=== PATIENT | female | born 1950 | race American Indian/Alaskan Native ===

== ENCOUNTER 2019-02-18 08:40 | Observation (INO) | payer MEDICARE, OTHER ==
[2019-02-18 09:59] LABS: Basophils # (Auto) 0.1 K/mm3 (0.0-0.1); Eosinophils # (Auto) 0.1 K/mm3 (0.0-0.4); Eosinophils % (Auto) 1.9 % (0.0-4.3); Hemoglobin 13.1 gm/dl (10.1-14.3); Lymphocytes # (Auto) 1.9 K/mm3 (1.2-5.4); Lymphocytes % (Auto) 34.1 % (13.4-35.0); Mean Corpuscular HGB Conc 34 % (30-34); Mean Corpuscular Volume 91 fl (79-97); Monocytes # (Auto) 0.5 K/mm3 (0.0-0.8); Monocytes % (Auto) 9.3 % (0.0-7.3); Platelet Count 224 K/mm3 (140-440); Red Blood Count 4.29 M/mm3 (3.65-5.03); Red Cell Distribution Width 13.2 % (13.2-15.2)
[2019-02-18] MEDS ORDERED: NACL 0.9% 500 ML 500 ML IV SCH (10:00)
[2019-02-18] MEDS ORDERED: ECOTRIN PO ONE (10:00)
[2019-02-18 10:18] LABS: BUN/Creatinine Ratio 24; Blood Urea Nitrogen 12 mg/dL (7-17); Calcium 9.2 mg/dL (8.4-10.2); Hemolysis Index 24
[2019-02-18 10:40] LABS: INR 0.95 (0.87-1.13)
[2019-02-18] MEDS ORDERED: VERSED ONE (10:54)
[2019-02-18] MEDS ORDERED: CALAN ONE (10:54)
[2019-02-18] MEDS ORDERED: XYLOCAINE 2% INFILTRATI ONE (10:55)
[2019-02-18] MEDS: NITROGLYCERIN SYRINGE 3 ML ONE ×2 (11:38→11:53)
[2019-02-18] MEDS: HEPARIN/NS 5000 UNIT/500ML(CATH LAB) 1,000 ML IR ONE ×2 (11:38→11:50)
[2019-02-18] MEDS: SUBLIMAZE ONE ×3 (11:51→12:17)
[2019-02-18] MEDS: HEPARIN 10,000 UNITS/10 ML ONE ×2 (11:53→12:09)
[2019-02-18] MEDS ORDERED: ALUM-MAG HYDROX-SIMETH 200-200-20MG/5ML ONE (12:33)
[2019-02-18] MEDS ORDERED: PLAVIX ONE (12:33)
--- NOTE | 2019-02-18 13:33 | Cardiac Catherization Report ---
CARDIAC CATHETERIZATION REFERRING PHYSICIAN: Barak Cuevas MD INDICATION FOR PROCEDURE: The patient is a pleasant 68-year-old -Vin[place] female with recurrent chest pain, abnormal stress EKG, referred for left heart catheterization. Risks, benefits, and potential alternatives were explained at length prior to obtaining informed consent. PROCEDURE IN DETAIL: The patient was brought to the catheterization lab in a postabsorptive state, prepped and draped in sterile fashion, 8 mL of 2% lidocaine used to anesthetize the right wrist. A standard 6-[place] hydrophilic sheath used to cannulate the right radial artery via modified Seldinger technique. All exchanges performed changing to a J-tip guidewire. JL3.5 catheter used to engage the left main. No dampening or ventricularization. Cineangiography performed in all projections. JR4 catheter used to cross the aortic valve under fluoroscopic guidance. Left ventriculography performed 30 FERNANDO and 30 JERMAIN projections via hand injections, catheter flushed. Manual pullback performed with continuous pressure monitoring. Catheter used to engage the right coronary. No dampening or ventricularization. Cineangiography performed in all projections. Next, catheter removed from the body of wire. DATA: Aortic pressure is 150/60, LV pressure is 150, LVEDP of 18 mmHg. Left ventriculography reveals normal systolic performance with estimated ejection fraction of 55-60%. No evidence of aortic stenosis. CORONARY ANATOMY: This is a right dominant system. Right coronary with 99% mid segment lesion and 90% high mid lesion YING 2 flow. Left main short without significant disease, bifurcates left anterior descending and left circumflex. Left circumflex had significant disease, but it gives off an OM trunk. No significant disease. LAD is a moderate sized vessel, courses anterior intergroove, wraps and the apex, no significant disease in the LAD or diagonal system. These are smaller vessels. Left ventricle reveals normal ejection fraction of 60-65%. No evidence of aortic stenosis. At this point, given her symptoms, abnormal stress test, continue chest pain, proceed with PCI. A JR4 guide with sideholes was used. Heparin given. Abnormal ACT confirmed. The patient loaded with aspirin and Plavix. Prowater used and placed in the distal right coronary. We used a 2.5 balloon to predilate both lesions without difficulty. Used 2.5 x 12 Barnard stent in the distal lesion and deployed at 12 NABOR for 30 seconds. Excellent final angiographic results. Next, we used 2.5 x 12 in the proximal lesion. Juan deployed at 12 NABOR for 30 seconds. Excellent angiographic result. Intracoronary nitroglycerin was given for some mild spasm distally. YING 3 flow, excellent angiographic result. Intravascular ultrasound was performed, multiple passes were made. Excellent result. Excellent final angiographic and ultrasonographic results. The patient is chest pain free, hemodynamically stable and electrically stable. I directly supervised the administration of moderate sedation with fentanyl and Versed from 11:51-12:35 p.m. CONCLUSIONS: 1. Severe single vessel coronary artery disease with 90% high, mid and 90% mid to distal right coronary. These were certainly culprit lesions and causative of her symptoms. Successful PCI with placement of 2 drug-eluting stents. Resolute Juan 2.5 x 12 times 2 with excellent final angiographic and ultrasonographic results. 2. No other significant coronary disease. 3. Preserved LV function. 4. Aggressive primary and secondary prevention measures, statin, Plavix, aspirin. Blood pressure control. The patient is clinically stable. Follow up with Dr. Cuevas in the office. Results of procedure explained to the patient and family. All questions and concerns were addressed. JOB# [id number] SBAmrik/JIM
--- NOTE | 2019-02-18 13:35 | Short Stay Summary ---
Short Stay Documentation Date of service: 02/18/19 - History H&P: obtained from office - Allergies and Medications Current Medications: Allergies No Known Allergies Allergy (Verified 02/18/19 10:52) Home Medications Medication Instructions Recorded Confirmed Last Taken Type Lisinopril/Hydrochlorothiazide 1 tab PO DAILY 02/18/19 02/18/19 02/18/19 History 1 Active Medications Aspirin (Aspirin) 325 mg PO QDAY AMANDEEP Atorvastatin Calcium (Lipitor) 80 mg PO QHS AMANDEEP Clopidogrel Bisulfate (Plavix) 75 mg PO QDAY AMANDEEP Sodium Chloride (Nacl 0.9% 500 Ml) 500 mls @ 50 mls/hr IV DIRECT AMANDEEP Stop: 02/18/19 19:59 Last Admin: 02/18/19 10:00 Dose: 50 mls/hr Documented by: Metoprolol Tartrate (Lopressor) 25 mg PO BID AMANDEEP - Brief post op/procedure progress note Date of procedure: 02/18/19 Pre-op diagnosis: abnormal stress test Post-op diagnosis: other (CAD) Procedure: [facility] with PCI - see dictated cath report Anesthesia: local Estimated blood loss: none Condition: stable - Disposition Condition at discharge: Good Disposition: DC-01 TO HOME OR SELFCARE - Discharge Diagnoses (1) CAD (coronary artery disease) Status: Chronic (2) Stented coronary artery Status: Chronic (3) HTN (hypertension) Status: Chronic (4) Hyperlipidemia Status: Chronic Short Stay Discharge Plan Activity: advance as tolerated Diet: low fat, low cholesterol, low salt Wound: open to air, keep clean and dry, per your surgeon's advice Follow up with: ARGENIS MINOR NP-C [Primary Care Provider] - 7 Days MARC SHARP MD [Staff Physician] - 7 Days Prescriptions: AtorvaSTATin [Lipitor] 80 mg PO QHS #90 tablet Metoprolol [Lopressor TAB] 25 mg PO BID #180 tablet Clopidogrel [Plavix] 75 mg PO QDAY #90 tablet
[2019-02-18] MEDS ORDERED: ZESTRIL PO ONE (14:30)
[2019-02-18] MEDS ORDERED: LOPRESSOR PO ONE (14:30)
[2019-02-18] MEDS ORDERED: TYLENOL PO PRN (18:18)
[2019-02-18] MEDS: LOPRESSOR PO SCH (21:33)
[2019-02-19 06:05] LABS: Basophils % (Auto) 0.7 % (0.0-1.8); Eosinophils # (Auto) 0.1 K/mm3 (0.0-0.4); Eosinophils % (Auto) 2.2 % (0.0-4.3); Hematocrit 37.7 % (30.3-42.9); Hemoglobin 12.7 gm/dl (10.1-14.3); Lymphocytes # (Auto) 2.2 K/mm3 (1.2-5.4); Mean Corpuscular HGB Conc 34 % (30-34); Mean Corpuscular Volume 91 fl (79-97); Monocytes # (Auto) 0.7 K/mm3 (0.0-0.8); Platelet Count 225 K/mm3 (140-440); Red Blood Count 4.17 M/mm3 (3.65-5.03); Red Cell Distribution Width 13.7 % (13.2-15.2)
[2019-02-19 06:29] LABS: Creatine Kinase MB 1.9 ng/mL (0.0-4.0)
[2019-02-19 06:33] LABS: BUN/Creatinine Ratio 20; Blood Urea Nitrogen 12 mg/dL (7-17); Calcium 8.9 mg/dL (8.4-10.2); Hemolysis Index 4
[2019-02-19 07:39] VITALS: BP 116/54
--- NOTE | 2019-02-19 09:32 | XRay Report ---
PROCEDURE: XR CHEST 1V AP TECHNIQUE: Chest, portable semiupright HISTORY: post pci COMPARISON: None FINDINGS: There is no cardiomegaly, congestion, infiltrate, pleural effusion or pneumothorax seen. IMPRESSION: There is no acute abnormality identified. This document is electronically signed by Alejandra Henderson MD., Feb 19 2019 09:31:02 AM ET
[2019-02-19] MEDS ORDERED: ASPIRIN PO SCH (10:00)
[2019-02-19] MEDS ORDERED: PLAVIX PO SCH (10:00)
[2019-02-19] MEDS ORDERED: ZESTRIL PO SCH (10:00)
[2019-02-19] MEDS: LOPRESSOR PO SCH (10:47)
== END 2019-02-19 11:06 | disposition home or self-care (01) ==
LOC: CATHLABREC 08:40 → 4A 13:18
PROVIDERS: ADMIT Internal Medicine; ATTEND Internal Medicine
DX: I25.10 Atherosclerotic heart disease of native coronary artery without angina pectoris (principal); I10 Essential (primary) hypertension; R07.89 Other chest pain; R94.39 Abnormal result of other cardiovascular function study; E78.5 Hyperlipidemia, unspecified; Z79.82 Long term (current) use of aspirin; Z79.899 Other long term (current) drug therapy; Z90.710 Acquired absence of both cervix and uterus; Z87.891 Personal history of nicotine dependence; Z82.49 Family history of ischemic heart disease and other diseases of the circulatory system; Z95.5 Presence of coronary angioplasty implant and graft
CPT/HCPCS: 36415; 71045; 80048; 82550; 82553; 84484; 85025; 85610; 85730; 92978; 93005; 93010; 93458; A9270; C1725; C1753; C1769; C1874; C1887; C1894; C9600; G0378; J1644; J2250; J3010; J7040; 85347; 92928; Q9967

== ENCOUNTER 2019-11-17 09:59 | Emergency (ER) | payer MEDICARE ==
[2019-11-17] MEDS ORDERED: ASPIRIN 325 MG TAB PO ONE (10:08)
--- NOTE | 2019-11-17 10:53 | XRay Report ---
CHEST 2 VIEWS INDICATION: Chest Pain. COMPARISON: 02/19/2019 FINDINGS: Support devices: None. Heart: Within normal limits. Lungs/pleura: No acute air space or interstitial disease. No pneumothorax. Additional findings: None. IMPRESSION: Unremarkable chest films. No change since 02/19/2019. Signer Name: Jovi Lomeli Jr, MD Signed: 11/17/2019 10:48 AM Workstation Name: [id number]
[2019-11-17 11:08] LABS: Basophils # (Auto) 0.1 K/mm3 (0.0-0.1); Basophils % (Auto) 0.8 % (0.0-1.8); Hematocrit 40.8 % (30.3-42.9); Hemoglobin 13.8 gm/dl (10.1-14.3); Lymphocytes # (Auto) 1.4 K/mm3 (1.2-5.4); Lymphocytes % (Auto) 17.7 % (13.4-35.0); Mean Corpuscular HGB Conc 34 % (30-34); Mean Corpuscular Volume 91 fl (79-97); Monocytes % (Auto) 12.7 % (0.0-7.3); Platelet Count 226 K/mm3 (140-440); Red Blood Count 4.49 M/mm3 (3.65-5.03); Red Cell Distribution Width 12.9 % (13.2-15.2)
[2019-11-17 11:23] LABS: BUN/Creatinine Ratio 18; Blood Urea Nitrogen 11 mg/dL (7-17); Calcium 9.1 mg/dL (8.4-10.2); Hemolysis Index 24
--- NOTE | 2019-11-17 11:52 | Emergency Department Report ---
ED Chest Pain HPI - General Chief Complaint: Chest Pain Stated Complaint: CHEST PAIN, SYNCOPE, COUGHING Time Seen by Provider: 11/17/19 11:45 Source: patient Mode of arrival: Ambulatory Limitations: No Limitations - History of Present Illness Initial Comments: This is a 69 year old female any of right sided chest pain. She stated that she vomited last night. This morning she developed pain in the right mammary area which did not radiate. She does not complain of on going nausea. She feels a bit clammy but has not been frankly sweating. She denies cough or fever. She states that she has some chronic leg pain without change or acute swelling. The patient is status post double drug-eluting stents in the RCA in 2019. This was after an abnormal stress test: Brief post op/procedure progress note Date of procedure: 02/18/19 Pre-op diagnosis: abnormal stress test Post-op diagnosis: other (CAD) Procedure: [facility] with PCI - see dictated cath report Anesthesia: local Estimated blood loss: none Condition: stable - Disposition Condition at discharge: Good Disposition: DC-01 TO HOME OR SELFCARE - Discharge Diagnoses (1) CAD (coronary artery disease) Status: Chronic (2) Stented coronary artery Status: Chronic (3) HTN (hypertension) Status: Chronic (4) Hyperlipidemia Patient cannot describe the chest pain other than it is "pain". It does seem to worsen slightly with deep inspiration and somewhat with movement. MD Complaint: chest pain -: Gradual Onset: during rest Pain Location: right chest Pain Radiation: none Severity: moderate, severe Severity scale (0 -10): 8 Quality: aching Consistency: other (now improved) Improves With: nothing Worsens With: nothing re: vomting (yesterday). denies: nausea, diaphoresis, dyspnea, sense of impending doom Other Symptoms: denies: cough, fever, syncope Treatments Prior to Arrival: aspirin Aspirin use within the Past 7 Days: (1) Yes - Related Data Home Medications Medication Instructions Recorded Confirmed Last Taken Lisinopril/Hydrochlorothiazide 1 tab PO DAILY 02/18/19 02/18/19 02/18/19 1 Previous Rx's Medication Instructions Recorded Last Taken Type Aspirin 325 mg PO QDAY tablet 02/18/19 Unknown Rx AtorvaSTATin [Lipitor] 80 mg PO QHS #90 tablet 02/18/19 Unknown Rx Clopidogrel [Plavix] 75 mg PO QDAY #90 tablet 02/18/19 Unknown Rx Metoprolol [Lopressor TAB] 25 mg PO BID #180 tablet 02/18/19 Unknown Rx Allergies Allergy/AdvReac Type Severity Reaction Status Date / Time No Known Allergies Allergy Verified 11/17/19 10:03 Heart Score - HEART Score History: Slightly suspicious EKG: Non-specific Age: > 65 Risk factors: > 3 risk factors or hx of atherosclerotic disease Troponin: < normal limit HEART Score: 5 ED Review of Systems ROS: Stated complaint: CHEST PAIN, SYNCOPE, COUGHING Other details as noted in HPI Constitutional: denies: chills, fever Eyes: denies: eye pain, eye discharge, vision change ENT: denies: ear pain, throat pain Respiratory: denies: cough, shortness of breath, wheezing Cardiovascular: chest pain. denies: palpitations Endocrine: no symptoms reported Gastrointestinal: vomiting. denies: abdominal pain, nausea, diarrhea Genitourinary: denies: urgency, dysuria, discharge Musculoskeletal: as per HPI (states chronic leg pain). denies: back pain, joint swelling, arthralgia Skin: denies: rash, lesions Neurological: denies: headache, weakness, paresthesias Psychiatric: denies: anxiety, depression Hematological/Lymphatic: denies: easy bleeding, easy bruising ED Past Medical Hx - Past Medical History Hx Hypertension: Yes - Surgical History Hx Coronary Stent: Yes - Social History Smoking Status: Former Smoker Substance Use Type: None - Medications Home Medications: Home Medications Medication Instructions Recorded Confirmed Last Taken Type Aspirin 325 mg PO QDAY tablet 02/18/19 Unknown Rx AtorvaSTATin [Lipitor] 80 mg PO QHS #90 tablet 02/18/19 Unknown Rx Clopidogrel [Plavix] 75 mg PO QDAY #90 tablet 02/18/19 Unknown Rx Lisinopril/Hydrochlorothiazide 1 tab PO DAILY 02/18/19 02/18/19 02/18/19 History 1 Metoprolol [Lopressor TAB] 25 mg PO BID #180 tablet 02/18/19 Unknown Rx ED Physical Exam - General Limitations: No Limitations General appearance: alert, in no apparent distress - Head Head exam: Present: atraumatic, normocephalic - Eye Eye exam: Present: normal appearance. Absent: scleral icterus - ENT ENT exam: Present: mucous membranes moist - Neck Neck exam: Present: normal inspection. Absent: tenderness, meningismus - Respiratory Respiratory exam: Present: normal lung sounds bilaterally. Absent: respiratory distress - Cardiovascular Cardiovascular Exam: Present: regular rate, normal rhythm. Absent: systolic murmur, diastolic murmur, rubs, gallop - GI/Abdominal GI/Abdominal exam: Present: soft, normal bowel sounds. Absent: distended, tenderness, guarding, rebound, rigid - Extremities Exam Extremities exam: Present: normal inspection, full ROM, normal capillary refill. Absent: tenderness, pedal edema, joint swelling, calf tenderness - Back Exam Back exam: Present: normal inspection - Neurological Exam Neurological exam: Present: alert, oriented X3, CN II-XII intact. Absent: motor sensory deficit - Psychiatric Psychiatric exam: Present: normal affect, normal mood - Skin Skin exam: Present: warm, dry, intact, normal color. Absent: rash ED Course Vital Signs 11/17/19 11/17/19 10:08 11:11 Temperature 97.7 F Pulse Rate 112 H 103 H Respiratory 22 30 H Rate Blood Pressure 136/64 144/68 [Left] O2 Sat by Pulse 97 100 Oximetry YING score - Ying Score Age > 65: (1) Yes Aspirin use within the Past 7 Days: (1) Yes 3 or more CAD Risk Factors: (1) Yes 2 or more Angina events in past 24 hrs: (0) No Known CAD with more than 50% Stenosis: (1) Yes Elevated Cardiac Markers: (0) No ST Deviation Greater than 0.5mm: (0) No YING Score: 4 ED Medical Decision Making - Lab Data Result diagrams: 11/17/19 10:31 11/17/19 10:31 Laboratory Results - last 24 hr 11/17/19 11/17/19 10:31 10:31 WBC 8.1 RBC 4.49 Hgb 13.8 Hct 40.8 MCV 91 MCH 31 MCHC 34 RDW 12.9 L Plt Count 226 Lymph % (Auto) 17.7 Cuming % (Auto) 12.7 H Eos % (Auto) 0.0 Baso % (Auto) 0.8 Lymph # 1.4 Cuming # 1.0 H Eos # 0.0 Baso # 0.1 Seg Neutrophils % 68.8 Seg Neutrophils # 5.5 Sodium 135 L Potassium 3.6 Chloride 97.1 L Carbon Dioxide 21 L Anion Gap 21 BUN 11 Creatinine 0.6 L Estimated GFR > 60 BUN/Creatinine Ratio 18 Glucose 130 H Calcium 9.1 Troponin T < 0.010 Laboratory Results - last 24 hr 11/17/19 11/17/19 11/17/19 10:31 10:31 12:20 WBC 8.1 RBC 4.49 Hgb 13.8 Hct 40.8 MCV 91 MCH 31 MCHC 34 RDW 12.9 L Plt Count 226 Lymph % (Auto) 17.7 [place] % (Auto) 12.7 H Eos % (Auto) 0.0 Baso % (Auto) 0.8 Lymph # 1.4 [place]uming # 1.0 H Eos # 0.0 Baso # 0.1 Seg Neutrophils % 68.8 Seg Neutrophils # 5.5 PT 13.1 INR 0.98 APTT 31.9 Sodium 135 L Potassium 3.6 Chloride 97.1 L Carbon Dioxide 21 L Anion Gap 21 BUN 11 Creatinine 0.6 L Estimated GFR > 60 BUN/Creatinine Ratio 18 Glucose 130 H Calcium 9.1 Troponin T < 0.010 - EKG Data -: EKG Interpreted by Nv EKG shows normal: sinus rhythm, axis, intervals, QRS complexes, ST-T waves Rate: normal - EKG Data Interpretation: nonspecific ST-T wave fernandez, LVH - Radiology Data Radiology results: pending (CT angiogram pending), report reviewed (chest x-ray normal findings per radiologist) Chest x-ray no acute process Critical care attestation.: If time is entered above; I have spent that time in minutes in the direct care of this critically ill patient, excluding procedure time. ED Disposition Clinical Impression: Stented coronary artery CAD (coronary artery disease) Qualifiers: Coronary Disease-Associated Artery/Lesion type: unspecified vessel or lesion type [place] vs. transplanted heart: [place] heart Associated angina: with unspecified angina Qualified Code(s): I25.119 - Atherosclerotic heart disease of [place] coronary artery with unspecified angina pectoris Chest pain Qualifiers: Chest pain type: unspecified Qualified Code(s): R07.9 - Chest pain, unspecified Disposition: -09 OP ADMIT IP TO THIS HOSP Is pt being admited?: Yes Does the pt Need Aspirin: Yes Condition: Stable Instructions: Chest Pain (ED) Referrals: PRIMARY CARE, [Primary Care Provider] - 3-5 Days Time of Disposition: 14:37
[2019-11-17 13:05] LABS: INR 0.98 (0.87-1.13)
[2019-11-17 13:06] LABS: Partial Thromboplastin Time 31.9 Sec. (24.2-36.6)
[2019-11-17] MEDS ORDERED: ASPIRIN 325 MG TAB ONE (13:06)
--- NOTE | 2019-11-17 15:26 | History and Physical Report ---
Medications and Allergies Allergies Allergy/AdvReac Type Severity Reaction Status Date / Time No Known Allergies Allergy Verified 11/17/19 10:03 Home Medications Medication Instructions Recorded Confirmed Last Taken Type Aspirin 325 mg PO QDAY tablet 02/18/19 Unknown Rx AtorvaSTATin [Lipitor] 80 mg PO QHS #90 tablet 02/18/19 Unknown Rx Clopidogrel [Plavix] 75 mg PO QDAY #90 tablet 02/18/19 Unknown Rx Lisinopril/Hydrochlorothiazide 1 tab PO DAILY 02/18/19 02/18/19 02/18/19 History 1 Metoprolol [Lopressor TAB] 25 mg PO BID #180 tablet 02/18/19 Unknown Rx Exam - Constitutional Vitals: Temp Pulse Resp BP Pulse Ox 97.7 F 107 H 21 144/66 97 11/17/19 10:08 11/17/19 14:30 11/17/19 14:30 11/17/19 15:02 11/17/19 15:02 Results - Labs CBC & Chem 7: 11/17/19 10:31 11/17/19 10:31 Labs: Abnormal lab results 11/17/19 11/17/19 Range/Units 10:31 10:31 RDW 12.9 L (13.2-15.2) % Turner % (Auto) 12.7 H (0.0-7.3) % [place] # 1.0 H (0.0-0.8) K/mm3 Sodium 135 L (137-145) mmol/L Chloride 97.1 L (98-107) mmol/L Carbon Dioxide 21 L (22-30) mmol/L Creatinine 0.6 L (0.7-1.2) mg/dL Glucose 130 H (65-100) mg/dL
--- NOTE | 2019-11-17 15:26 | Cat Scan Report ---
CTA CHEST WITH IV CONTRAST INDICATION: Right chest pain. TECHNIQUE: Axial CT images were obtained through the chest after injection of 100 MLO Omnipaque 350 IV contrast. 3 plane MIP reconstructions were produced. All CT scans at this location are performed using CT dose reduction for ALARA by means of automated exposure control. COMPARISON: 2 views of the chest from earlier today. FINDINGS: PULMONARY ARTERIES: Well-opacified without distinct thromboemboli. AORTA AND ARTERIES: The aorta is patent and normal in caliber with mild atherosclerosis. No additiona l significant abnormality. MEDIASTINUM: The thyroid gland is unremarkable. The trachea and main bronchi are patent and normal in caliber. No mass or lymphadenopathy. Normal heart size without a pericardial effusion. LUNGS: No suspicious consolidation, nodule or mass. No pneumothorax or pleural effusion. ADDITIONAL FINDINGS: None. UPPER ABDOMEN: No acute findings. BONES: No acute abnormality. Mild degenerative changes are noted along the spine. IMPRESSION: 1. No CT evidence for pulmonary embolism. 2. No other acute abnormality of the chest. Signer Name: Carlos Mccauley MD Signed: 11/17/2019 3:22 PM Workstation Name: [id number]
--- NOTE | 2019-11-17 17:12 | Consultation ---
History of Present Illness Consult date: 11/17/19 Requesting physician: AVERY HENDERSON Consult reason: chest pain History of present illness: Pt is a 69 y.o. AA female with a hx of CAD s/p PCI with double ROBIN to RCA in 02/2019, HTN, HLD, and PAD. She is followed in our practice by Dr. Cuevas. Pt presented with complaints of right-sided CP radiating to her neck. She describes the CP as tightness that worsens upon inspiration. Pt reports the pain started around 7am. She had previously been experiencing flu-like sx for 2 days prior and reports passing out last night following an episode of NBNB emesis. Upon exam, her CP appeared to be reproducible and MSK in nature. Kiera negative. ECG shows sinus tachycardia. Chest CTA negative for PE. CXR unremarkable. Past History Past Medical History: CAD (s/p PCI 02/2019 w/double ROBIN to RCA), hypertension, hyperlipidemia, PVD Past Surgical History: Other (coronary stent) Social history: no significant social history Family history: no significant family history Medications and Allergies Allergies Allergy/AdvReac Type Severity Reaction Status Date / Time No Known Allergies Allergy Verified 11/17/19 10:03 Home Medications Medication Instructions Recorded Confirmed Last Taken Type Aspirin 325 mg PO QDAY tablet 02/18/19 Unknown Rx AtorvaSTATin [Lipitor] 80 mg PO QHS #90 tablet 02/18/19 Unknown Rx Clopidogrel [Plavix] 75 mg PO QDAY #90 tablet 02/18/19 Unknown Rx Lisinopril/Hydrochlorothiazide 1 tab PO DAILY 02/18/19 02/18/19 02/18/19 History 1 Metoprolol [Lopressor TAB] 25 mg PO BID #180 tablet 02/18/19 Unknown Rx Review of Systems Constitutional: fever, fatigue Ears, nose, mouth and throat: nasal congestion, nasal discharge, sore throat, neck fullness/pressure Cardiovascular: chest pain, syncope, lightheadedness, no orthopnea, no palpitations, no edema, no shortness of breath, no dyspnea on exertion Respiratory: cough, no shortness of breath, no dyspnea on exertion Gastrointestinal: vomiting, no abdominal pain, no nausea Genitourinary Female: no dysuria Musculoskeletal: no muscle weakness Integumentary: no rash Neurological: syncope, no seizures Endocrine: cold intolerance, no heat intolerance Hematologic/Lymphatic: no easy bruising, no easy bleeding Allergic/Immunologic: no urticaria Physical Examination Vital Signs Temp Pulse Resp BP Pulse Ox 97.7 F 112 H 22 136/64 97 11/17/19 10:08 11/17/19 10:08 11/17/19 10:08 11/17/19 10:08 11/17/19 10:08 General appearance: no acute distress HEENT: Positive: PERRL, Normocephaly, Mucus Membranes Moist Neck: Positive: neck supple, trachea midline Cardiac: Positive: Reg Rate and Rhythm, S1/S2 Lungs: Positive: clear to auscultation, No Wheeze, Rales, Rhonchi Neuro: Positive: Grossly Intact Abdomen: Positive: Soft. Negative: Tender Skin: Negative: Rash, Wound Musculoskeletal: No Pain Extremities: Present: normal, upper extr. pulses, lower extr. pulses. Absent: edema Results 11/17/19 10:31 11/17/19 10:31 Coagulation 11/17/19 Range/Units 12:20 PT 13.1 (12.2-14.9) Sec. INR 0.98 (0.87-1.13) APTT 31.9 (24.2-36.6) Sec. CBC 11/17/19 Range/Units 10:31 WBC 8.1 (4.5-11.0) K/mm3 RBC 4.49 (3.65-5.03) M/mm3 Hgb 13.8 (10.1-14.3) gm/dl Hct 40.8 (30.3-42.9) % Plt Count 226 (140-440) K/mm3 Lymph # 1.4 (1.2-5.4) K/mm3 [place] # 1.0 H (0.0-0.8) K/mm3 Eos # 0.0 (0.0-0.4) K/mm3 Baso # 0.1 (0.0-0.1) K/mm3 Comprehensive Metabolic Panel 11/17/19 Range/Units 10:31 Sodium 135 L (137-145) mmol/L Potassium 3.6 (3.6-5.0) mmol/L Chloride 97.1 L (98-107) mmol/L Carbon Dioxide 21 L (22-30) mmol/L BUN 11 (7-17) mg/dL Creatinine 0.6 L (0.7-1.2) mg/dL Glucose 130 H (65-100) mg/dL Calcium 9.1 (8.4-10.2) mg/dL - Imaging and Cardiology EKG: image reviewed - EKG Interpretation EKG: no acute changes EKG interpretations - EKG Sinus rhythms and dysrhythmias: sinus tachycardia Assessment and Plan Recommend NSAIDs. Advised pt to call our office upon discharge to schedule a f/u appointment with Dr. Cuevas for stress test ([phone]). The patient has been seen in conjunction with Dr. Cuevas, who agrees with the assessment and plan of care. - Patient Problems (1) Atypical chest pain Current Visit: Yes Status: Acute (2) Sinus tachycardia Current Visit: Yes Status: Acute (3) CAD (coronary artery disease) Current Visit: Yes Status: Chronic Qualifiers: [place] vs. transplanted heart: [place] heart Associated angina: with unspecified angina Qualified Code(s): I25.119 - Atherosclerotic heart disease of [place] coronary artery with unspecified angina pectoris (4) Stented coronary artery Current Visit: Yes Status: Chronic (5) HTN (hypertension) Current Visit: Yes Status: Chronic
[2019-11-17] MEDS ORDERED: IBUPROFEN 800 MG TAB PO PRN (17:55)
[2019-11-17 20:12] VITALS: BP 129/53
== END 2019-11-17 20:03 | disposition admitted as inpatient to this hospital (09) ==
LOC: ED 09:59
DX: R07.89 Other chest pain (principal); R00.0 Tachycardia, unspecified; I25.10 Atherosclerotic heart disease of native coronary artery without angina pectoris; I10 Essential (primary) hypertension; E78.5 Hyperlipidemia, unspecified; Z79.899 Other long term (current) drug therapy; Z95.5 Presence of coronary angioplasty implant and graft
CPT/HCPCS: 36415; 71046; 71275; 80048; 84484; 85025; 85610; 85730; 87400; 93005; 93010; 99285; Q9967

== ENCOUNTER 2021-02-22 20:57 | Observation (INO) | payer MEDICARE ==
[2021-02-22 22:01] LABS: Basophils % (Auto) 0.5 % (0.0-1.8); Eosinophils # (Auto) 0.2 K/mm3 (0.0-0.4); Eosinophils % (Auto) 2.2 % (0.0-4.3); Hematocrit 39.1 % (30.3-42.9); Hemoglobin 13.2 gm/dl (10.1-14.3); Lymphocytes # (Auto) 1.8 K/mm3 (1.2-5.4); Lymphocytes % (Auto) 22.8 % (13.4-35.0); Mean Corpuscular HGB Conc 34 % (30-34); Mean Corpuscular Volume 91 fl (79-97); Monocytes # (Auto) 0.6 K/mm3 (0.0-0.8); Monocytes % (Auto) 8.2 % (0.0-7.3); Platelet Count 239 K/mm3 (140-440); Red Blood Count 4.28 M/mm3 (3.65-5.03); Red Cell Distribution Width 13.8 % (13.2-15.2)
--- NOTE | 2021-02-22 22:04 | XRay Report ---
CHEST 2 VIEWS INDICATION / CLINICAL INFORMATION: CP. COMPARISON: 11/17/2019 FINDINGS: SUPPORT DEVICES: None. HEART / MEDIASTINUM: Stable. LUNGS / PLEURA: No significant pulmonary or pleural abnormality. No pneumothorax. Coarsened interstit ial lung markings are similar. ADDITIONAL FINDINGS: No significant additional findings. IMPRESSION: 1. No acute findings. No significant interval change since 11/17/2019. Signer Name: Julio Dockery MD Signed: 02/22/2021 9:59 PM Workstation Name: [id number]
[2021-02-22 22:54] LABS: Alanine Aminotransferase 14 units/L (7-56); Albumin 4.1 g/dL (3.9-5); BUN/Creatinine Ratio 19; Blood Urea Nitrogen 19 mg/dL (7-17); Calcium 9.2 mg/dL (8.4-10.2); Hemolysis Index 17
[2021-02-22] MEDS ORDERED: ASPIRIN 325 MG TAB PO ONE (23:01)
--- NOTE | 2021-02-22 23:08 | Emergency Department Report ---
ED Chest Pain HPI - General Chief Complaint: Chest Pain Stated Complaint: CHEST PAIN PUI?: No Time Seen by Provider: 02/22/21 22:40 Source: patient Mode of arrival: Ambulatory Limitations: No Limitations - History of Present Illness Initial Comments: Patient is a 70-year-old female presents emergency room with complaints of chest pain. Patient states her chest pain started 2 hours prior to arrival. Patient states the chest pain is worsening. Patient states that she is had a heart attack in the past and has 2 stents. Patient states that the pain is left chest and substernal. Patient states the pain is nonradiating. Patient denies shortness of breath. Patient denies fever or chills. Patient denies cough. Patient denies recent travel. Patient denies recent international travel. Patient denies exposure to the novel coronavirus. Patient denies sick contacts. Patient denies fever and chills. Patient denies cough. Patient denies diarrhea. Patient denies coming in contact with anybody with symptoms of the novel coronavirus. MD Complaint: chest pain -: Sudden Onset: during rest Pain Location: substernal, left chest Pain Radiation: none Severity: severe Severity scale (0 -10): 8 Quality: sharp Consistency: constant Improves With: rest Worsens With: exertion re: denies: nausea, vomting, diaphoresis, dyspnea, sense of impending doom Other Symptoms: denies: cough, fever, syncope, rash, acid taste in mouth, leg swelling, palpitations, burping Treatments Prior to Arrival: none Aspirin use within the Past 7 Days: (1) Yes - Related Data On Oral Contraceptives: No Home Medications Medication Instructions Recorded Confirmed Last Taken Lisinopril/Hydrochlorothiazide 1 tab PO DAILY 02/18/19 02/18/19 02/18/19 1 Previous Rx's Medication Instructions Recorded Last Taken Type Aspirin 325 mg PO QDAY tablet 02/18/19 Unknown Rx AtorvaSTATin [Lipitor] 80 mg PO QHS #90 tablet 02/18/19 Unknown Rx Clopidogrel [Plavix] 75 mg PO QDAY #90 tablet 02/18/19 Unknown Rx Metoprolol [Lopressor TAB] 25 mg PO BID #180 tablet 02/18/19 Unknown Rx Ibuprofen [Motrin] 800 mg PO Q8HR PRN #30 tablet 11/17/19 Unknown Rx Allergies Allergy/AdvReac Type Severity Reaction Status Date / Time No Known Allergies Allergy Verified 11/17/19 10:03 Heart Score - HEART Score History: Moderately suspicious EKG: Non-specific Age: > 65 Risk factors: > 3 risk factors or hx of atherosclerotic disease Troponin: < normal limit HEART Score: 6 - EKG Read Time Time EKG Completed: 21:25 EKG Read Time: 21:30 ED Review of Systems ROS: Stated complaint: CHEST PAIN Other details as noted in HPI Constitutional: denies: chills, fever Eyes: denies: eye pain, eye discharge, vision change ENT: denies: ear pain, throat pain Respiratory: denies: cough, shortness of breath, wheezing Cardiovascular: as per HPI, chest pain. denies: palpitations Endocrine: no symptoms reported Gastrointestinal: denies: abdominal pain, nausea, diarrhea Genitourinary: denies: urgency, dysuria, discharge Musculoskeletal: denies: back pain, joint swelling, arthralgia Skin: denies: rash, lesions Neurological: denies: headache, weakness, paresthesias Psychiatric: denies: anxiety, depression Hematological/Lymphatic: denies: easy bleeding, easy bruising ED Past Medical Hx - Past Medical History Previous Medical History?: Yes Hx Hypertension: Yes - Surgical History Past Surgical History?: Yes Hx Coronary Stent: Yes - Family History Family history: no significant - Social History Smoking Status: Former Smoker Substance Use Type: None - Medications Home Medications: Home Medications Medication Instructions Recorded Confirmed Last Taken Type Aspirin 325 mg PO QDAY tablet 02/18/19 Unknown Rx AtorvaSTATin [Lipitor] 80 mg PO QHS #90 tablet 02/18/19 Unknown Rx Clopidogrel [Plavix] 75 mg PO QDAY #90 tablet 02/18/19 Unknown Rx Lisinopril/Hydrochlorothiazide 1 tab PO DAILY 02/18/19 02/18/19 02/18/19 History 1 Metoprolol [Lopressor TAB] 25 mg PO BID #180 tablet 02/18/19 Unknown Rx Ibuprofen [Motrin] 800 mg PO Q8HR PRN #30 tablet 11/17/19 Unknown Rx ED Physical Exam - General Limitations: No Limitations General appearance: alert, in no apparent distress - Head Head exam: Present: atraumatic, normocephalic - Eye Eye exam: Present: normal appearance - ENT ENT exam: Present: mucous membranes moist - Neck Neck exam: Present: normal inspection - Respiratory Respiratory exam: Present: normal lung sounds bilaterally. Absent: respiratory distress, wheezes, rales, rhonchi, stridor, chest wall tenderness, accessory muscle use - Cardiovascular Cardiovascular Exam: Present: regular rate, normal rhythm. Absent: systolic murmur, diastolic murmur, rubs, gallop - GI/Abdominal GI/Abdominal exam: Present: soft, normal bowel sounds. Absent: distended, tenderness, guarding - Extremities Exam Extremities exam: Present: normal inspection - Back Exam Back exam: Present: normal inspection - Neurological Exam Neurological exam: Present: alert, oriented X3 - Psychiatric Psychiatric exam: Present: normal affect, normal mood - Skin Skin exam: Present: warm, dry, intact, normal color. Absent: rash ED Course Vital Signs 02/22/21 21:07 Temperature 98.4 F Pulse Rate 85 Respiratory 18 Rate Blood Pressure 160/68 O2 Sat by Pulse 97 Oximetry - Reevaluation(s) Reevaluation #1: I discussed all results with patient. I discussed plan of care with patient. Patient agrees with plan of care and admission. Patient to be admitted to the hospitalist service. 02/22/21 23:08 - Consultations Consultation #1: Hospitalist consulted for admission. Hospitalist to admit patient. 02/22/21 23:12 YING score - Ying Score Age > 65: (1) Yes Aspirin use within the Past 7 Days: (1) Yes 3 or more CAD Risk Factors: (1) Yes 2 or more Angina events in past 24 hrs: (0) No Known CAD with more than 50% Stenosis: (1) Yes Elevated Cardiac Markers: (0) No ST Deviation Greater than 0.5mm: (0) No YING Score: 4 ED Medical Decision Making - Lab Data Result diagrams: 02/22/21 21:41 02/22/21 21:41 - EKG Data -: EKG Interpreted by Me EKG shows normal: sinus rhythm, axis, intervals, QRS complexes, ST-T waves Rate: normal - Radiology Data Radiology results: report reviewed, image reviewed interpreted by me: Chest x-ray: No pneumonia, no pneumothorax, no foreign body, no osseous findings, no acute findings CHEST 2 VIEWS INDICATION / CLINICAL INFORMATION: CP. COMPARISON: 11/17/2019 FINDINGS: SUPPORT DEVICES: None. HEART / MEDIASTINUM: Stable. LUNGS / PLEURA: No significant pulmonary or pleural abnormality. No pneumo thorax. Coarsened interstitial lung markings are similar. ADDITIONAL FINDINGS: No significant additional findings. IMPRESSION: 1. No acute findings. No significant interval change since 11/17/2019. - Medical Decision Making Patient is a 70-year-old female that presents emergency room with complaints of chest pain that started 2 hours prior to arrival. Patient has history of CAD, stents and [place]. Patient had labs done which were essentially unremarkable. Patient initial cardiac enzymes were negative. Patient chest x-ray was negative. Patient EKG was negative. I personally reviewed the EKG and the chest x-ray. Patient admitted to the hospital service for further evaluation treatment. Critical care time documented due to the multiple reassessments, prolonged time at the bedside, interpretation of diagnostics and labs. . - Differential Diagnosis Chest pain, ACS, CAD, anxiety, pneumonia Critical Care Time: Yes Critical care time in (mins) excluding proc time.: 35 Critical care attestation.: If time is entered above; I have spent that time in minutes in the direct care of this critically ill patient, excluding procedure time. Critical Care Time: 35 minutes ED Disposition Clinical Impression: Stented coronary artery CAD (coronary artery disease) Qualifiers: Coronary Disease-Associated Artery/Lesion type: [place] artery [place] vs. transplanted heart: [place] heart Associated angina: with unspecified form of angina Qualified Code(s): I25.119 - Atherosclerotic heart disease of [place] coronary artery with unspecified angina pectoris Chest pain Qualifiers: Chest pain type: unspecified Qualified Code(s): R07.9 - Chest pain, unspecified Disposition: DC-09 OP ADMIT IP TO THIS HOSP Is pt being admited?: Yes Does the pt Need Aspirin: No Condition: Critical Time of Disposition: 23:13
[2021-02-22] MEDS ORDERED: traZODone 50 MG TAB PO PRN (23:39)
[2021-02-22] MEDS ORDERED: ONDANSETRON 4 MG/2 ML INJ IV PRN (23:41)
[2021-02-22] MEDS ORDERED: ALUM-MAG HYDROXIDE-SIMETHICONE 200-200-20MG/5ML ORAL LIQD 30 ML PO PRN (23:41)
[2021-02-22] MEDS ORDERED: ACETAMINOPHEN 325 MG TAB PO PRN ×2 (23:41)
[2021-02-22] MEDS ORDERED: SENNOSIDES 8.6 MG TAB PO PRN (23:41)
[2021-02-22] MEDS ORDERED: MAGNESIUM HYDROXIDE (MOM) ORAL LIQD UDC PO PRN (23:41)
[2021-02-22] MEDS ORDERED: NITROGLYCERIN 0.4 MG TAB SUBL SL PRN (23:41)
[2021-02-23] MEDS: METOPROLOL TARTRATE 25 MG TAB PO SCH ×3 (00:28→17:56)
[2021-02-23 01:20] LABS: Basophils # (Auto) 0.1 K/mm3 (0.0-0.1); Basophils % (Auto) 0.7 % (0.0-1.8); Eosinophils # (Auto) 0.2 K/mm3 (0.0-0.4); Eosinophils % (Auto) 2.3 % (0.0-4.3); Hematocrit 36.5 % (30.3-42.9); Hemoglobin 12.4 gm/dl (10.1-14.3); Lymphocytes # (Auto) 1.9 K/mm3 (1.2-5.4); Lymphocytes % (Auto) 23.8 % (13.4-35.0); Mean Corpuscular HGB Conc 34 % (30-34); Mean Corpuscular Volume 91 fl (79-97); Monocytes # (Auto) 0.7 K/mm3 (0.0-0.8); Monocytes % (Auto) 8.5 % (0.0-7.3); Platelet Count 229 K/mm3 (140-440); Red Blood Count 4.01 M/mm3 (3.65-5.03); Red Cell Distribution Width 13.7 % (13.2-15.2)
--- NOTE | 2021-02-23 01:23 | History and Physical Report ---
History of Present Illness Date of examination: 02/22/21 Date of admission: 02/22/21 Chief complaint: Chest Pain History of present illness: Patient is a 70-year-old female presents emergency room with complaints of chest pain. Patient states her chest pain started 2 hours prior to arrival. Patient states the chest pain is worsening. Patient states that she is had a heart attack in the past and has 2 stents. Patient states that the pain is left chest and substernal. Patient states the pain is nonradiating. Patient denies shortness of breath. Patient denies fever or chills. Patient denies cough ED work-up shows WBC 7.4 hemoglobin 11.7, platelets 219, sodium level 142, potassium 3.8, creatinine 0.9, troponins negative, BNP 48.9, checks x-ray done no acute finding. Patient seen in ED at bedside. Patient alert oriented x3. I reviewed the medical record, medication administration record, and vital signs. Patient reports that she has chest pain. She reported a history of [place] with CAD and has 2 stent placement. She also has past medical history of hypertension and hyperlipidemia. Patient denies tobacco use admits occasional alcohol mild use and denied illicit drug use. Per patient medical record she was a former smoker but has quit. Echocardiogram ordered fire alarm inspector consulted. Past History Past Medical History: CAD, hypertension, hyperlipidemia Past Surgical History: Other (CAD with stent placement) Social history: no significant social history, smoking (Former tobacco user) Medications and Allergies Allergies Allergy/AdvReac Type Severity Reaction Status Date / Time No Known Allergies Allergy Verified 11/17/19 10:03 Home Medications Medication Instructions Recorded Confirmed Last Taken Type Aspirin 325 mg PO QDAY tablet 02/18/19 Unknown Rx AtorvaSTATin [Lipitor] 80 mg PO QHS #90 tablet 02/18/19 Unknown Rx Clopidogrel [Plavix] 75 mg PO QDAY #90 tablet 02/18/19 Unknown Rx Lisinopril/Hydrochlorothiazide 1 tab PO DAILY 02/18/19 02/18/19 02/18/19 History 1 Metoprolol [Lopressor TAB] 25 mg PO BID #180 tablet 02/18/19 Unknown Rx Ibuprofen [Motrin] 800 mg PO Q8HR PRN #30 tablet 11/17/19 Unknown Rx Review of Systems Constitutional: no fatigue, no poor appetite Ears, nose, mouth and throat: no epistaxis, no bleeding gums Cardiovascular: chest pain Respiratory: no hemoptysis, no congestion, no wheezing Gastrointestinal: no melena Rectal: no hemorrhoids Integumentary: no pruritis, no redness Neurological: no paralysis Psychiatric: no anxiety, no suicidal ideation, no disorientation, no hallucinations Endocrine: no weight change Hematologic/Lymphatic: no easy bleeding Allergic/Immunologic: no urticaria Exam - Constitutional Vitals: Temp Pulse Resp BP Pulse Ox 98.4 F 85 18 160/68 97 02/22/21 21:07 02/22/21 21:07 02/22/21 21:07 02/22/21 21:07 02/22/21 21:07 General appearance: Present: mild distress, well-nourished - EENT Eyes: Present: PERRL ENT: hearing intact, clear oral mucosa - Neck Neck: Present: supple, normal ROM - Respiratory Respiratory effort: normal Respiratory: bilateral: CTA - Cardiovascular Heart rate: 85 Heart Sounds: Present: S1 & S2. Absent: rub, click - Extremities Extremities: pulses symmetrical, No edema Peripheral Pulses: within normal limits - Abdominal General gastrointestinal: Present: soft, non-tender, non-distended, normal bowel sounds Female genitourinary: Present: normal - Integumentary Integumentary: Present: clear, warm, dry - Musculoskeletal Musculoskeletal: strength equal bilaterally, generalized weakness - Psychiatric Psychiatric: appropriate mood/affect, intact judgment & insight, cooperative - Neurologic Neurologic: CNII-XII intact, moves all extremities - Allied Health Allied health notes reviewed: nursing HEART Score - HEART Score EKG: Non-specific Age: > 65 Risk factors: > 3 risk factors or hx of atherosclerotic disease Troponin: Troponin T < 0.010 ng/mL (0.00-0.029) 02/22/21 21:41 Troponin: < normal limit Results - Labs CBC & Chem 7: 02/23/21 05:07 02/23/21 05:07 Labs: Abnormal lab results 02/22/21 02/22/21 Range/Units 21:41 21:41 [place] % (Auto) 8.2 H (0.0-7.3) % BUN 19 H (7-17) mg/dL Glucose 107 H (65-100) mg/dL Assessment and Plan - Patient Problems (1) Chest pain Current Visit: Yes Status: Acute Qualifiers: Chest pain type: unspecified Qualified Code(s): R07.9 - Chest pain, unspecified Plan to address problem: Questionable causeadmitted to rule out cardiac source Continue current cardioprotective measures Aspirin, nitro sublingual, BB, statin, oxygen supplement as needed Echocardiogram and cardiology consult Checks x-ray showed no acute finding and troponin level negative (2) CAD (coronary artery disease) Current Visit: Yes Status: Chronic Qualifiers: Coronary Disease-Associated Artery/Lesion type: [place] artery [place] vs. transplanted heart: [place] heart Associated angina: with unspecified form of angina Qualified Code(s): I25.119 - Atherosclerotic heart disease of [place] coronary artery with unspecified angina pectoris Plan to address problem: History of stent placement Continue statin and Plavix (3) HTN (hypertension) Current Visit: No Status: Chronic Plan to address problem: Monitor blood pressure levels Resume home antihypertensive As needed hydralazine (4) Hyperlipidemia Current Visit: No Status: Chronic Plan to address problem: Continue statin (5) DVT prophylaxis Current Visit: Yes Status: Acute Plan to address problem: Subcutaneous Lovenox (6) Full code status Current Visit: Yes Status: Acute Plan to address problem: Patient is full code
[2021-02-23 01:34] LABS: BUN/Creatinine Ratio 23; Blood Urea Nitrogen 21 mg/dL (7-17); Calcium 8.9 mg/dL (8.4-10.2); Hemolysis Index 4
[2021-02-23 06:10] LABS: Basophils # (Auto) 0.1 K/mm3 (0.0-0.1); Basophils % (Auto) 0.8 % (0.0-1.8); Eosinophils # (Auto) 0.2 K/mm3 (0.0-0.4); Eosinophils % (Auto) 2.7 % (0.0-4.3); Hematocrit 34.8 % (30.3-42.9); Hemoglobin 11.7 gm/dl (10.1-14.3); Lymphocytes % (Auto) 27.4 % (13.4-35.0); Mean Corpuscular HGB Conc 34 % (30-34); Mean Corpuscular Volume 91 fl (79-97); Monocytes # (Auto) 0.7 K/mm3 (0.0-0.8); Platelet Count 219 K/mm3 (140-440); Red Blood Count 3.84 M/mm3 (3.65-5.03); Red Cell Distribution Width 13.6 % (13.2-15.2)
[2021-02-23 06:21] LABS: Blood Urea Nitrogen 20 mg/dL (7-17); Calcium 8.4 mg/dL (8.4-10.2); Hemolysis Index 3
[2021-02-23 06:22] LABS: BUN/Creatinine Ratio 40
[2021-02-23] MEDS: ASPIRIN 81 MG TAB CHEW PO SCH (09:34)
[2021-02-23] MEDS: hydroCHLOROthiazide 12.5 MG CAP PO SCH (09:35)
[2021-02-23] MEDS: PANTOPRAZOLE 40 MG TAB PO SCH (09:35)
[2021-02-23] MEDS: LISINOPRIL 40 MG TAB PO SCH ×2 (09:35→21:37)
[2021-02-23] MEDS: CLOPIDOGREL 75 MG TAB PO SCH (09:36)
[2021-02-23] MEDS ORDERED: PNEUMOCOCCAL 23 Valent 0.5 ML VIAL IM ONE (10:00)
[2021-02-23] MEDS: ENOXAPARIN 40 MG/0.4 ML INJ SUB-Q SCH (10:20)
--- NOTE | 2021-02-23 12:45 | Consultation ---
History of Present Illness Consult date: 02/23/21 Consult reason: chest pain History of present illness: 70-year-old female with history of coronary artery disease and status post history of coronary stenting in February 2019, being followed by a payroll and benefits specialist at [facility], name of which she does not know, presents with chest pain a few hours duration to the emergency room. Her pain started yesterday around 2:00 PM while she was at home, throbbing-like pain intermittently but no associated shortness of breath or palpitations. This is sustained, hence she came to the emergency room, she was evaluated in the emergency room. EKG showed sinus rhythm and nonspecific T wave parameters. Subsequently admitted to telemetry unit. By overnight her chest pain got better. At the time of my examination she is not having any chest pain or shortness of breath. Her troponin levels were found to be normal. She walks when she has to go to work and she walks 3 blocks without any chest pain shortness of breath. His chest pain is new. 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 Denies any fever or coughing or chills. 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 denies: alcohol abuse, IV drug use Medications and Allergies Allergies Allergy/AdvReac Type Severity Reaction Status Date / Time No Known Allergies Allergy Verified 11/17/19 10:03 Home Medications Medication Instructions Recorded Confirmed Last Taken Type Aspirin 325 mg PO QDAY tablet 02/18/19 Unknown Rx AtorvaSTATin [Lipitor] 80 mg PO QHS #90 tablet 02/18/19 Unknown Rx Clopidogrel [Plavix] 75 mg PO QDAY #90 tablet 02/18/19 Unknown Rx Lisinopril/Hydrochlorothiazide 1 tab PO DAILY 02/18/19 02/18/19 02/18/19 History 1 Metoprolol [Lopressor TAB] 25 mg PO BID #180 tablet 02/18/19 Unknown Rx Ibuprofen [Motrin] 800 mg PO Q8HR PRN #30 tablet 11/17/19 Unknown Rx Active Meds: Active Medications Acetaminophen (Acetaminophen 325 Mg Tab) 650 mg PO Q4H PRN PRN Reason: Pain MILD(1-3)/Fever >100.5/BELL Last Admin: 02/23/21 10:20 Dose: 650 mg Documented by: Al Hydrox/Mg Hydrox/Simethicone (Alum-Mag Hydroxide-Simethicone [id number]/5ml Oral Liqd 30 Ml) 30 ml PO Q4H PRN PRN Reason: Indigestion Last Admin: 02/23/21 10:20 Dose: 30 ml Documented by: Aspirin (Aspirin 81 Mg Tab Chew) 81 mg PO QDAY [facility] Last Admin: 02/23/21 09:34 Dose: 81 mg Documented by: Atorvastatin Calcium (Atorvastatin 40 Mg Tab) 40 mg PO QHS [facility] Clopidogrel Bisulfate (Clopidogrel 75 Mg Tab) 75 mg PO QDAY [facility] Last Admin: 02/23/21 09:36 Dose: 75 mg Documented by: Enoxaparin Sodium (Enoxaparin 40 Mg/0.4 Ml Inj) 40 mg SUB-Q QDAY@1000 AMANDEEP; Protocol Last Admin: 02/23/21 10:20 Dose: 40 mg Documented by: Hydrochlorothiazide (Hydrochlorothiazide 12.5 Mg Cap) 12.5 mg PO QDAY [facility] Last Admin: 02/23/21 09:35 Dose: 12.5 mg Documented by: Lisinopril (Lisinopril 40 Mg Tab) 40 mg PO BID [facility] Last Admin: 02/23/21 09:35 Dose: 40 mg Documented by: Magnesium Hydroxide (Magnesium Hydroxide (Mom) Oral Liqd Udc) 30 ml PO Q4H PRN PRN Reason: Constipation Metoprolol Tartrate (Metoprolol Tartrate 25 Mg Tab) 25 mg PO BID@0800,1700 [facility] Last Admin: 02/23/21 09:35 Dose: 25 mg Documented by: Nitroglycerin (Nitroglycerin 0.4 Mg Tab Subl) 0.4 mg SL Q5M PRN PRN Reason: Chest Pain Last Admin: 02/23/21 00:29 Dose: 0.4 mg Documented by: Ondansetron HCl (Ondansetron 4 Mg/2 Ml Inj) 4 mg IV Q8H PRN PRN Reason: Nausea And Vomiting Pantoprazole Sodium (Pantoprazole 40 Mg Tab) 40 mg PO QDAY [facility] Last Admin: 02/23/21 09:35 Dose: 40 mg Documented by: Senna (Sennosides 8.6 Mg Tab) 8.6 mg PO Q12HR PRN PRN Reason: Constipation Sodium Chloride (Sodium Chloride 0.9% 10 Ml Flush Syringe) 10 ml IV BID [facility] Last Admin: 02/23/21 09:37 Dose: 10 ml Documented by: Sodium Chloride (Sodium Chloride 0.9% 10 Ml Flush Syringe) 10 ml IV PRN PRN PRN Reason: LINE FLUSH Tramadol HCl (Tramadol 50 Mg Tab) 50 mg PO Q6H PRN PRN Reason: Pain, Moderate (4-6) Trazodone HCl (Trazodone 50 Mg Tab) 50 mg PO QHS PRN PRN Reason: Insomnia Review of Systems Constitutional: no weight loss Ears, nose, mouth and throat: no ear discharge Breasts: no deferred Cardiovascular: chest pain, no orthopnea, no palpitations, no lightheadedness, no shortness of breath, no dyspnea on exertion Respiratory: no cough Gastrointestinal: no abdominal pain Genitourinary Female: no dysuria Rectal: no pain Musculoskeletal: low back pain Integumentary: no rash Neurological: no paralysis Endocrine: no cold intolerance Hematologic/Lymphatic: no easy bleeding Allergic/Immunologic: no urticaria Physical Examination Vital Signs Temp Pulse Resp BP Pulse Ox 98.4 F 85 18 160/68 97 02/22/21 21:07 02/22/21 21:07 02/22/21 21:07 02/22/21 21:07 02/22/21 21:07 General appearance: no acute distress HEENT: Positive: PERRL Neck: Positive: neck supple Cardiac: Positive: Reg Rate and Rhythm, S4. Negative: Audible Murmur Lungs: Positive: clear to auscultation Neuro: Positive: Grossly Intact Abdomen: Positive: Unremarkable Female genitourinary: deferred Skin: Negative: Rash Extremities: Absent: edema Results 02/23/21 05:07 02/23/21 05:07 Cardiac Enzymes 02/22/21 Range/Units 21:41 AST 19 (5-40) units/L CBC 02/22/21 02/23/21 02/23/21 Range/Units 21:41 00:47 05:07 WBC 7.7 8.0 7.4 (4.5-11.0) K/mm3 RBC 4.28 4.01 3.84 (3.65-5.03) M/mm3 Hgb 13.2 12.4 11.7 (10.1-14.3) gm/dl Hct 39.1 36.5 34.8 (30.3-42.9) % Plt Count 239 229 219 (140-440) K/mm3 Lymph # (Auto) 1.8 1.9 2.0 (1.2-5.4) K/mm3 [place] # (Auto) 0.6 0.7 0.7 (0.0-0.8) K/mm3 Eos # (Auto) 0.2 0.2 0.2 (0.0-0.4) K/mm3 Baso # (Auto) 0.0 0.1 0.1 (0.0-0.1) K/mm3 Comprehensive Metabolic Panel 02/22/21 02/23/21 02/23/21 Range/Units 21:41 00:47 05:07 Sodium 144 142 144 (137-145) mmol/L Potassium 4.2 3.8 3.6 (3.6-5.0) mmol/L Chloride 105.4 105.4 107.9 H (98-107) mmol/L Carbon Dioxide 30 29 27 (22-30) mmol/L BUN 19 H 21 H 20 H (7-17) mg/dL Creatinine 1.0 0.9 0.5 L (0.6-1.2) mg/dL Glucose 107 H 103 H 106 H (65-100) mg/dL Calcium 9.2 8.9 8.4 (8.4-10.2) mg/dL AST 19 (5-40) units/L ALT 14 (7-56) units/L Alkaline Phosphatase 102 (35-129) units/L Total Protein 7.0 (6.3-8.2) g/dL Albumin 4.1 (3.9-5) g/dL Laboratory Tests 02/22/21 02/23/21 02/23/21 21:41 00:47 05:07 Estimated GFR Hemoglobin A1c Troponin T < 0.010 < 0.010 < 0.010 NT-Pro-B Natriuret Pep 02/23/21 02/23/21 05:07 05:07 Estimated GFR > 60 Hemoglobin A1c 5.7 Troponin T NT-Pro-B Natriuret Pep 48.79 EKG interpretations - Telemetry EKG Rhythm: Sinus Rhythm (EKG done at the time of admission on February 22, 2021 showed sinus rhythm with nonspecific T wave abnormalities. Heart rate was 71 bpm.) Assessment and Plan 70-year-old female with known history of coronary artery disease and coronary stenting in February 2019, being followed regularly by payroll and benefits specialist at [facility], with history of hypertension and hyperlipidemia, no history of diabetes mellitus or lung problems. Presented with atypical chest pains. EKG remained unchanged. Cardiac enzymes were found to be unremarkable. Etiology of her chest pain is not clear. 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 Considering she is having atypical chest pains with known previous cardiac history, would do further cardiac work-up namely stress myocardial perfusion imaging prior to discharge and prior to she can go back to work. Presently she is stable without any chest pain she is on appropriate medication, continue the same. We will get functional evaluation with a stress myocardial perfusion imaging. She says she can walk on the treadmill. If it is unremarkable, we can discharge her. In the meantime we will monitor in telemetry and continue present medical therapy. Discussed with the patient and she is agreeable with the plan. - Patient Problems (1) Chest pain Current Visit: Yes Status: Acute Qualifiers: Chest pain type: unspecified Qualified Code(s): R07.9 - Chest pain, unspecified (2) CAD (coronary artery disease) Current Visit: Yes Status: Chronic Qualifiers: Coronary Disease-Associated Artery/Lesion type: [place] artery [place] vs. transplanted heart: [place] heart Associated angina: with unspecified form of angina Qualified Code(s): I25.119 - Atherosclerotic heart disease of [place] coronary artery with unspecified angina pectoris (3) HTN (hypertension) Current Visit: No Status: Chronic (4) Hyperlipidemia Current Visit: No Status: Chronic
--- NOTE | 2021-02-23 14:34 | Progress Note ---
Assessment and Plan (1) Chest pain Current Visit: Yes Status: Acute Qualifiers: Chest pain type: unspecified Qualified Code(s): R07.9 - Chest pain, unspecified Plan to address problem: Questionable causeadmitted to rule out cardiac source Continue current cardioprotective measures Aspirin, nitro sublingual, BB, statin, oxygen supplement as needed Echocardiogram and cardiology consult Checks x-ray showed no acute finding and troponin level negative (2) CAD (coronary artery disease) Current Visit: Yes Status: Chronic Qualifiers: Coronary Disease-Associated Artery/Lesion type: [place] artery [place] vs. transplanted heart: [place] heart Associated angina: with unspecified form of angina Qualified Code(s): I25.119 - Atherosclerotic heart disease of [place] coronary artery with unspecified angina pectoris Plan to address problem: History of stent placement Continue statin and Plavix (3) HTN (hypertension) Current Visit: No Status: Chronic Plan to address problem: Monitor blood pressure levels Resume home antihypertensive As needed hydralazine (4) Hyperlipidemia Current Visit: No Status: Chronic Plan to address problem: Continue statin (5) DVT prophylaxis Current Visit: Yes Status: Acute Plan to address problem: Subcutaneous Lovenox (6) Full code status Current Visit: Yes Status: Acute Plan to address problem: Patient is full code Daily clinical course: 02/23/21: cont to monitor clinically, need stress test before discharge per cardiology. Continue to monitor with troponin and serial EKGs. Subjective Date of service: 02/23/21 Interval history: Patient seen and examined. Medical records and medication list reviewed. No acute event overnight noted by the RN. Patient denies any chest pain or difficulty breathing. Patient is tolerating diet. Discussed plan of care at bedside with patient. Objective - Exam Narrative Exam: GENERAL: well-developed and well-nourished elderly female lying on bed appeared to be in no discomfort. HEENT: Normocephalic. Atraumatic. No conjunctival congestion or icterus. Patient has moist mucous membranes. NECK: Supple. Trachea midline. CHEST/LUNGS: Clear to auscultated bilaterally, breathing nonlabored. No wheezes crackles or rhonchi. HEART/CARDIOVASCULAR: Regular in rate and rhythm. S1 and S2 positive. ABDOMEN: Abdomen is soft, nontender. Patient has normal bowel sounds. SKIN: There is no rash. Warm and dry. NEURO: No focal motor deficit. Follows command. MUSCULOSKELETAL: No joint effusion or tenderness. EXTRIMITY: No edema, no cyanosis or clubbing. PSYCH: Cooperative. - Constitutional Vitals: Vital Signs - 12hr 02/23/21 02/23/21 02/23/21 04:31 09:25 09:35 Temperature 97.3 F L 98.5 F Pulse Rate 74 77 75 Respiratory 20 18 Rate Blood Pressure 122/48 144/50 144/50 O2 Sat by Pulse 95 96 Oximetry 02/23/21 02/23/21 11:21 13:05 Temperature Pulse Rate 70 Respiratory 18 Rate Blood Pressure O2 Sat by Pulse 96 Oximetry - Labs CBC & Chem 7: 02/23/21 05:07 02/23/21 05:07 Labs: Abnormal lab results 02/22/21 02/22/21 02/23/21 Range/Units 21:41 21:41 00:47 [place] % (Auto) 8.2 H 8.5 H (0.0-7.3) % [place] (98-107) mmol/L BUN 19 H (7-17) mg/dL Creatinine (0.6-1.2) mg/dL Glucose 107 H (65-100) mg/dL 02/23/21 02/23/21 02/23/21 Range/Units 00:47 05:07 05:07 [place] % (Auto) 9.0 H (0.0-7.3) % Chloride 107.9 H (98-107) mmol/L BUN 21 H 20 H (7-17) mg/dL Creatinine 0.5 L (0.6-1.2) mg/dL Glucose 103 H 106 H (65-100) mg/dL HEART Score - HEART Score EKG: Non-specific Age: > 65 Risk factors: > 3 risk factors or hx of atherosclerotic disease Troponin: Troponin T < 0.010 ng/mL (0.00-0.029) 02/23/21 05:07 Troponin: < normal limit
[2021-02-23] MEDS: traMADol 50 MG TAB PO PRN (19:59)
[2021-02-24] MEDS: ENOXAPARIN 40 MG/0.4 ML INJ SUB-Q SCH (09:16)
[2021-02-24] MEDS: METOPROLOL TARTRATE 25 MG TAB PO SCH ×2 (09:16→18:39)
[2021-02-24] MEDS: ASPIRIN 81 MG TAB CHEW PO SCH (09:17)
[2021-02-24] MEDS: PANTOPRAZOLE 40 MG TAB PO SCH (09:17)
[2021-02-24] MEDS: traMADol 50 MG TAB PO PRN (09:17)
[2021-02-24] MEDS: CLOPIDOGREL 75 MG TAB PO SCH (09:17)
[2021-02-24] MEDS: hydroCHLOROthiazide 12.5 MG CAP PO SCH ×2 (09:20→13:35)
[2021-02-24] MEDS: LISINOPRIL 40 MG TAB PO SCH ×3 (09:20→21:23)
--- NOTE | 2021-02-24 09:52 | XRay Report ---
LUMBAR SPINE 3 VIEWS INDICATION / CLINICAL INFORMATION: back pain. COMPARISON: None available. FINDINGS: VERTEBRAE: No acute fracture. No significant malalignment. DISC SPACES / FACET JOINTS:Mild multilevel degenerative changes are noted of the spine most prominent at L5-S1 with facet arthropathy and minimal narrowing of the neural foramina. PARASPINAL SOFT TISSUES:Vascular calcifications are noted of the abdomen. ADDITIONAL FINDINGS: None. Signer Name: Julio Dockery MD Signed: 02/24/2021 9:47 AM Workstation Name: [id number]
--- NOTE | 2021-02-24 12:48 | Progress Note ---
Assessment and Plan (1) Chest pain Current Visit: Yes Status: Acute Qualifiers: Chest pain type: unspecified Qualified Code(s): R07.9 - Chest pain, unspecified Plan to address problem: Questionable causeadmitted to rule out cardiac source Continue current cardioprotective measures Aspirin, nitro sublingual, BB, statin, oxygen supplement as needed Echocardiogram and cardiology consult Checks x-ray showed no acute finding and troponin level negative (2) CAD (coronary artery disease) Current Visit: Yes Status: Chronic Qualifiers: Coronary Disease-Associated Artery/Lesion type: [place] artery [place] vs. transplanted heart: [place] heart Associated angina: with unspecified form of angina Qualified Code(s): I25.119 - Atherosclerotic heart disease of [place] coronary artery with unspecified angina pectoris Plan to address problem: History of stent placement Continue statin and Plavix (3) HTN (hypertension) Current Visit: No Status: Chronic Plan to address problem: Monitor blood pressure levels Resume home antihypertensive As needed hydralazine (4) Hyperlipidemia Current Visit: No Status: Chronic Plan to address problem: Continue statin (5) DVT prophylaxis Current Visit: Yes Status: Acute Plan to address problem: Subcutaneous Lovenox (6) Full code status Current Visit: Yes Status: Acute Plan to address problem: Patient is full code Daily clinical course: 02/23/21: cont to monitor clinically, need stress test before discharge per cardiology. Continue to monitor with troponin and serial EKGs. 02/24: Pending stress test, scheduled for tomorrow. Continue to monitor the patient with telemetry for cardiology recommendation. Subjective Date of service: 02/24/21 Interval history: Patient seen and examined. Medical records and medication list reviewed. No acute event overnight noted by the RN. Patient denies any chest pain or difficulty breathing. Patient is tolerating diet. Discussed plan of care at bedside with patient. Objective - Exam Narrative Exam: GENERAL: well-developed and well-nourished elderly female lying on bed appeared to be in no discomfort. HEENT: Normocephalic. Atraumatic. No conjunctival congestion or icterus. Patient has moist mucous membranes. NECK: Supple. Trachea midline. CHEST/LUNGS: Clear to auscultated bilaterally, breathing nonlabored. No wheezes crackles or rhonchi. HEART/CARDIOVASCULAR: Regular in rate and rhythm. S1 and S2 positive. ABDOMEN: Abdomen is soft, nontender. Patient has normal bowel sounds. SKIN: There is no rash. Warm and dry. NEURO: No focal motor deficit. Follows command. MUSCULOSKELETAL: No joint effusion or tenderness. EXTRIMITY: No edema, no cyanosis or clubbing. PSYCH: Cooperative. - Constitutional Vitals: Vital Signs - 12hr 02/24/21 02/24/21 02/24/21 04:49 08:23 09:00 Temperature 97.6 F 98.2 F Pulse Rate 63 74 Respiratory 18 18 Rate Respiratory 18 Rate [Medial Chest] Blood Pressure 120/46 106/40 O2 Sat by Pulse 97 94 Oximetry 02/24/21 02/24/21 09:20 10:52 Temperature Pulse Rate Respiratory 18 Rate Respiratory Rate [Medial Chest] Blood Pressure 106/40 O2 Sat by Pulse 97 Oximetry - Labs CBC & Chem 7: 02/23/21 05:07 02/23/21 05:07 HEART Score - HEART Score EKG: Non-specific Age: > 65 Risk factors: > 3 risk factors or hx of atherosclerotic disease Troponin: Troponin T < 0.010 ng/mL (0.00-0.029) 02/23/21 05:07 Troponin: < normal limit
[2021-02-25] MEDS ORDERED: REGADENOSON 0.4 MG/5 ML INJ IV ONE (08:29)
--- NOTE | 2021-02-25 11:40 | Discharge Summary ---
Providers - Providers Date of Admission: 02/22/21 23:18 Date of discharge: 02/25/21 Attending physician: MAE HAN 02/22/21 Consult to Cardiac Rehabilitation [CONS] Routine Reason For Exam: Phase I 02/22/21 23:41 Consult to Cardiology [CONS] Routine Consulting Provider: ROCKY ANDREWS Reason For Exam: chest pain 02/22/21 23:51 Consult to Physician [CONS] Stat Comment: Consulting Provider: ROCKY ANDREWS Physician Instructions: Reason For Exam: chest pain 02/22/21 23:57 Consult to Physician [CONS] Stat Comment: Consulting Provider: [facility] Physician Instructions: Reason For Exam: chest pain Primary care physician: RUSSIAN RUBBER Hospitalization Condition: Critical Pertinent studies: Chest x-ray, lumbar spine x-ray, myocardial stress test, 2D echocardiogram Hospital course: Patient is a 70-year-old reported history of DE with coronary artery disease status post 2 stent placement, hypertension hyperlipidemia presented to the emergency room with complaints of chest pain which started 2 hours prior to arrival. Patient stated that the pain is left sided and substernal, nonradiating. ED work-up showed WBC 7.4 hemoglobin 11.7, platelets 219, sodium level 142, potassium 3.8, creatinine 0.9, troponins negative, BNP 48.9, checks x-ray done no acute finding. Per patient medical record she was a former smoker but has quit. Patient was admitted and underwent myocardial stress test which was normal. Patient did complains of chronic lumbar pain, lumbar x-ray was obtained and showed degenerative disease. Patient was then discharged home in stable condition with outpatient follow-up. Disposition: - TO HOME OR SELFCARE Final Discharge Diagnosis (Prints w/discharge instructions): Atypical chest pain, likely due to GERD. Coronary artery disease with history of stent placement. Hypertension. Hyperlipidemia. History of tobacco abuse. Chronic lumbar pain Time spent for discharge: 34 minutes Core Measure Documentation - Palliative Care Palliative Care/ Comfort Measures: Not Applicable - Core Measures Any of the following diagnoses?: none Exam - Physical Exam Narrative exam: GENERAL: well-developed and well-nourished elderly female lying on bed appeared to be in no discomfort. HEENT: Normocephalic. Atraumatic. No conjunctival congestion or icterus. Patient has moist mucous membranes. NECK: Supple. Trachea midline. CHEST/LUNGS: Clear to auscultated bilaterally, breathing nonlabored. No wheezes crackles or rhonchi. HEART/CARDIOVASCULAR: Regular in rate and rhythm. S1 and S2 positive. ABDOMEN: Abdomen is soft, nontender. Patient has normal bowel sounds. SKIN: There is no rash. Warm and dry. NEURO: No focal motor deficit. Follows command. MUSCULOSKELETAL: No joint effusion or tenderness. EXTRIMITY: No edema, no cyanosis or clubbing. PSYCH: Cooperative. - Constitutional Vitals: Temp Pulse Resp BP Pulse Ox 97.8 F 64 48 H 139/48 98 02/25/21 07:44 02/25/21 07:44 02/25/21 07:44 02/25/21 07:44 02/25/21 07:44 Plan Activity: advance as tolerated Weight Bearing Status: Weight Bear as Tolerated Diet: low fat, low cholesterol Additional Instructions: Follow-up with neurosurgeon -Dr. Brown for your chronic lumbar back pain Follow up with: PRIMARY CAREMD [Primary Care Provider] - 3-5 Days ROCKY ANDREWS MD [Staff Physician] - 7 Days MALORIE SEGURA II, MD [Staff Physician] - 7 Days Prescriptions: traZODone [Desyrel] 50 mg PO QHS PRN #14 tablet PRN Reason: Insomnia Aspirin [Aspirin BABY CHEW TAB] 81 mg PO QDAY #30 tab.chew Cyclobenzaprine HCl [Flexeril 5 MG TAB] 5 mg PO TID #30 tab Pantoprazole [Protonix TAB] 40 mg PO QDAY #30 tablet traMADoL [Ultram 50 MG tab] 50 mg PO Q6H PRN #14 tablet PRN Reason: Pain, Moderate (4-6)
[2021-02-25 11:57] VITALS: BP 150/62
[2021-02-25] MEDS: LISINOPRIL 40 MG TAB PO SCH (12:05)
[2021-02-25] MEDS: CLOPIDOGREL 75 MG TAB PO SCH (12:05)
[2021-02-25] MEDS: ASPIRIN 81 MG TAB CHEW PO SCH (12:05)
[2021-02-25] MEDS: PANTOPRAZOLE 40 MG TAB PO SCH (12:05)
[2021-02-25] MEDS: traMADol 50 MG TAB PO PRN (12:06)
--- NOTE | 2021-02-25 12:24 | Nuclear Medicine Report ---
APPROVED REPORT Exam: Nuclear Stress Test Indication: Chest pain BMI: 0 Stress Test Details Stress Test: Pharmacologic stress testing performed using 0.4 mg of regadenoson per 5 mL given IV over 10 seconds. HR Resting HR: 59 bpmMax Heart Rate (APMHR): 149 bpm Max HR Achieved: 105 bpmTarget HR (85% APMHR): 126 bpm % of APMHR: 70 Recovery HR: 76 bpm HR response to stress: Normal HR response to stress BP Resting BP: 125/50 mmHg Max BP: 185/59 mmHg Recovery BP: 138/51 mmHg BP response to stress: Normal blood pressure response to stress. ECG Resting ECG: Sinus Bradycardia Stress ECG: Sinus Rhythm Clinical Reason for Termination: Completed protocol NM EXAM: Myocardial Perfusion REST/STRESS Imaging Protocol: Rest Tc-99m/Stress Tc-99m 1 day Resting Data Rest SPECT myocardial perfusion imaging was performed in supine position 45 minutes following the intravenous injection of 10 mCi of Tc-99m Myoview. Time of rest injection: 0700 Pharmacologic Stress Pharmacologic stress test was performed by injecting Regadenoson 0.4 mg IV push followed by the intravenous injection of 28 mCi of Tc-99m Myoview. Time of stress injection: 0915 Gated Stress SPECT was performed 30 minutes after stress injection. The images were gated to evaluate regional wall motion and calculate left ventricular ejection fraction. Study Quality Study: excellent Lung Uptake: Normal Study Data TID = 1.15. Perfusion Wall Motion The rest and stress images show normal left ventricular wall motion. Nuclear Conclusion ECG Findings: negative for ischemia Clinical Findings: negative for ischemia Nuclear Findings: negative for ischemia Exercise Capacity: not assessed Left Ventricular Function: normal Normal study. No scintigraphic evidence for myocardial ischemia or scar. Normal left ventricular size and function with no regional wall motion abnormalities.
[2021-02-25] MEDS: ENOXAPARIN 40 MG/0.4 ML INJ SUB-Q SCH (12:29)
[2021-02-25] MEDS: METOPROLOL TARTRATE 25 MG TAB PO SCH (12:30)
[2021-02-25] MEDS: hydroCHLOROthiazide 12.5 MG CAP PO SCH (12:30)
--- NOTE | 2021-02-26 10:22 | Treadmill Report ---
[facility] [place] Test Date: 2021-02-25 Test Time: 09:22:00 Pat Name: HANS ANDRADE Department: Room: A483 1 Gender: F Registered Medical Transcriptionist: Lissette Yeung : 1950 Requested By: WM MULLINS Order Number: [id number] Reading MD: Benjie Victoria Interpretive Statements negative lexiscan ekg imaging pending Electronically Signed On 02-26-2021 10:21:52 EDT by Benjie Victoria
--- NOTE | 2021-02-26 17:34 | Electrocardiograph Report ---
[facility] Test Date: 2021-02-22 Test Time: 21:25:53 Pat Name: HANS ANDRADE Department: Room: A483 1 Gender: F Weighing Station Operator: JANAY : 1950 Requested By: GRAYSON RUBIN III Order Number: [id number] Reading MD: Selin Medina Measurements Intervals [place] Rate: 71 P: 74 AL: 158 QRS: 75 QRSD: 83 T: 40 QT: 406 QTc: 440 Interpretive Statements Sinus rhythm Nonspecific T abnormalities, lateral leads No previous ECG available for comparison Electronically Signed On 02-26-2021 17:33:55 EDT by Selin Medina
--- NOTE | 2021-02-26 17:40 | Electrocardiograph Report ---
[facility] Test Date: 2021-02-23 Test Time: 08:59:36 Pat Name: HANS ANDRADE Department: Room: A483 1 Gender: F Financial Investment Manager: PAVEL : 1950 Requested By: GRAYSON RUBIN III Order Number: [id number] Reading MD: Selin Medina Measurements Intervals [place] Rate: 68 P: 94 MT: 178 QRS: 78 QRSD: 81 T: 42 QT: 431 QTc: 458 Interpretive Statements Sinus rhythm Probable LVH with secondary repol abnrm No previous ECG available for comparison Electronically Signed On 02-26-2021 17:39:55 EDT by Selin Medina
== END 2021-02-25 15:30 | disposition home or self-care (01) ==
LOC: ED 20:57 → 4A 23:18
PROVIDERS: ADMIT Internal Medicine Geriatric Medicine; ATTEND Internal Medicine
DX: R07.89 Other chest pain (principal); I25.10 Atherosclerotic heart disease of native coronary artery without angina pectoris; I10 Essential (primary) hypertension; E78.5 Hyperlipidemia, unspecified; Z95.1 Presence of aortocoronary bypass graft; Z87.891 Personal history of nicotine dependence; Z79.82 Long term (current) use of aspirin
CPT/HCPCS: 36415; 71046; 72100; 78452; 80048; 80053; 83036; 83880; 84484; 85025; 93005; 93017; 93306; 96372; 99291; 99406; A9270; A9502; G0378; J1650; J2785